=== PATIENT | male | born 1955 | race Caucasian/White ===

== ENCOUNTER 2017-10-06 08:53 | Day surgery (SDC) | payer BC ==
[2017-10-06] MEDS ORDERED: LACTATED RINGERS 1,000 ML IV ONE ×2 (09:23→09:37)
[2017-10-06] MEDS ORDERED: MIDAZOLAM 2 MG/2 ML VIAL IVP ONE (09:51)
[2017-10-06] MEDS ORDERED: fentaNYL 100 MCG/2 ML VIAL IVP ONE (09:51)
[2017-10-06 10:22] VITALS: BP 124/87
== END 2017-10-06 08:54 | disposition home or self-care (01) ==
LOC: SDS 08:53
PROVIDERS: ATTEND Surgery
PROC: 0DBK8ZX Excision of Ascending Colon, Via Natural or Artificial Opening Endoscopic, Diagnostic (ICD-10-PCS; principal; 2017-10-06 10:00)
DX: Z12.11 Encounter for screening for malignant neoplasm of colon (principal); D12.2 Benign neoplasm of ascending colon; K57.30 Diverticulosis of large intestine without perforation or abscess without bleeding; K64.8 Other hemorrhoids; I10 Essential (primary) hypertension; E66.9 Obesity, unspecified
CPT/HCPCS: 45385; 88305; J7120

== ENCOUNTER 2023-04-15 12:26 | Outpatient (CLI) | payer MEDICARE ==
--- NOTE | 2023-04-15 16:27 | XRAY Report ---
PROCEDURE: Hand 2 View BILAT INDICATIONS: ARTHRITIS OF HANDS, NOCTURIA TECHNIQUE: 2 views of the right and left hand(s) acquired. COMPARISON: None. FINDINGS: Bones: No fractures or dislocations. No suspicious bony lesions. No osseous erosions. No periarticu lar osteopenia. Moderate left first CMC joint osteoarthritis. Mild bilateral second through fifth DIP joint osteoarthritis. Mild left second PIP joint osteoarthritis. Soft tissues: No suspicious soft tissue calcifications or masses. IMPRESSION: No osseous erosions. Polyarticular osteoarthritis. Reviewed by: Sherita Maxwell MD, PhD on 04/15/2023 4:26 PM PDT Approved by: Sherita Maxwell MD, PhD on 04/15/2023 4:26 PM PDT Station ID: [id number]
--- NOTE | 2023-04-15 16:35 | Ultrasound Report ---
PROCEDURE: Bladder INDICATIONS: ARTHRITIS OF HANDS, NOCTURIA TECHNIQUE: Real-time scanning was performed of the kidneys and bladder, with image documentation. COMPARISON: None FINDINGS: Bladder: Pre-void bladder volume is 157 mL. Post-void residual is 40 mL. Pre-void images demonstra te no intraluminal masses or stones. On pre-void images, bilateral ureteral jets are noted with colo r Doppler interrogation. (Of note, ureteral jets may not be detectable in up to 25% of cases due to insufficient differences in specific gravity between ureteral and bladder urine). Prostate is promin ent measuring 4.6 x 4.3 x 4.8 cm Miscellaneous: No free pelvic fluid. IMPRESSION: Prominent prostate. Mild post void residual. Reviewed by: Bere Sher MD on 04/15/2023 4:34 PM PDT Approved by: Bere Sher MD on 04/15/2023 4:34 PM PDT Station ID: [id number]
== END 2023-04-15 12:27 | disposition home or self-care (01) ==
LOC: DI 12:26
PROVIDERS: ATTEND Internal Medicine
DX: R35.1 Nocturia (principal); M19.042 Primary osteoarthritis, left hand; M19.041 Primary osteoarthritis, right hand

== ENCOUNTER 2023-11-04 15:20 | Outpatient (CLI) | payer MEDICARE ==
--- NOTE | 2023-11-04 21:08 | XRAY Report ---
PROCEDURE: Shoulder 3 View LT INDICATIONS: PAIN IN LEFT SHOULDER JOINT TECHNIQUE: 3 views of the shoulder were acquired. COMPARISON: None. FINDINGS: Bones: No fractures or dislocations. No suspicious bony lesions. Visualized ribs appear intact. G lenohumeral joint degenerative arthritis. Soft tissues: No suspicious soft tissue calcifications. The visualized lungs are within normal limi ts. IMPRESSION: Glenohumeral joint degenerative arthritis. No acute bony abnormality. Reviewed by: Raphael Josue MD on 11/04/2023 9:07 PM PST Approved by: Raphael Josue MD on 11/04/2023 9:07 PM PST Station ID: [id number]
== END 2023-11-04 15:21 | disposition home or self-care (01) ==
LOC: DI.S 15:20
PROVIDERS: ATTEND Nurse Practitioner Family
DX: M19.012 Primary osteoarthritis, left shoulder (principal)

== ENCOUNTER 2024-01-09 07:56 | Outpatient (CLI) | payer MEDICARE ==
[2024-01-09 08:27] LABS: CREATININE 0.8 mg/dL (0.6-1.3)
[2024-01-09] MEDS ORDERED: GADOTERATE MEGLUMINE 10 MMOL/20 ML VIAL ONE (09:31)
[2024-01-09] MEDS: GADOTERATE MEGLUMINE 10 MMOL/20 ML VIAL IVP ONE (10:54)
--- NOTE | 2024-01-09 12:36 | MRI Report ---
PROCEDURE: Pelvis W/WO INDICATIONS: ELEVATED PSA CONTRAST: CLARISCAN 17.2 ML TECHNIQUE: Coronal ultra fast SE, axial T1 FSE with fat saturation, 3-plane nonbreath-hold T2 FSE. After the ad ministration of contrast, dynamic axial, delayed axial and coronal ultra fast GE or 2-D spoiled GE wi th fat saturation through the pelvis. Optional diffusion weighted imaging and ADC may be performed. COMPARISON: None. FINDINGS: Image quality: Diffusion weighted and dynamic contrast enhanced images are diagnostic. Prostate: Gland size is 4.2 x 3.8 x 3.7 cm; ellipsoid gland volume is 31 mL. Extensive adenocarcinoma in the anterior fibromuscular stroma and both the right and left anterior tr ansitional zones measuring in aggregate 3.3 x 1.5 x 2.6 cm. T2 score 5. DWI score 5. DCE positive. Pi RADS 5. The extent of capsular contact raises concern for capsular invasion. This also extends close to the bladder neck. The seminal vesicles are clear. Mildly T2 hypointense heterogenous striated appearance of the peripheral zone is commonly seen with c urrent or prior prostatitis, PI-RADS 2. Genitourinary system: Mildly trabeculated bladder, likely related to chronic obstruction. Bowel and peritoneum: No bowel obstruction or pathologic ascites Nodes and vessels: No suspicious nodes by size criteria are seen, however consider PSA may catheter correlate for small anette disease if clinically necessary. No aneurysmal vessel identified. Soft tissues: No inguinal hernias. Bones: Degenerative changes. No suspicious enhancing lesion. IMPRESSION: Prostate adenocarcinoma involving both the right and left anterior transitional zones, with extensive capsular contact along the anterior fibromuscular stroma, raising concern for capsular invasion. PI RADS 5. The seminal vesicles appear clear. Reviewed by: Nile Wheeler MD on 01/09/2024 12:35 PM PST Approved by: Nile Wheeler MD on 01/09/2024 12:35 PM PST Station ID: [id number]
== END 2024-01-09 07:57 | disposition home or self-care (01) ==
LOC: LAB 07:56
PROVIDERS: ATTEND Urology
DX: R97.20 Elevated prostate specific antigen [PSA] (principal); C61 Malignant neoplasm of prostate
CPT/HCPCS: 36415; 72197; 82565; A9575

== ENCOUNTER 2024-02-16 08:48 | Day surgery (SDC) | payer MEDICARE ==
[2024-02-16] MEDS: LACTATED RINGERS 1,000 ML IV ONE (09:21)
[2024-02-16] MEDS ORDERED: LIDOCAINE-MPF 1% 30 ML VIAL ONE (10:07)
--- NOTE | 2024-02-16 10:17 | ANESTHESIA ---
Pre-Anesthesia VS, & Labs - Diagnosis elevated PSA - Procedure TRUS prostate biopsy Vital Signs: Temp Pulse Resp BP Pulse Ox O2 Flow Rate 36.6 C 70 18 140/83 H 95 02/16/24 09:30 02/16/24 09:30 02/16/24 09:30 02/16/24 09:30 02/16/24 09:30 Height: 5 ft 8 in Weight (kg): 89.9 kg Body Mass Index: 30.1 BMI Classification: Obese - NPO >8 hours Home Medications and Allergies Home Medications: Ambulatory Orders Azelastine HCl 1 spray NS DAILY 02/06/24 Cholecalciferol [Vitamin D3] 50 mcg PO DAILY 02/06/24 Fluticasone [Flonase] 1 sprays DAMIR DAILY 02/06/24 Multivitamin 1 each PO DAILY 02/06/24 Omeprazole 10 mg PO DAILY 02/06/24 Azelastine HCl 1 spray NS DAILY 02/06/24 Cholecalciferol [Vitamin D3] 50 mcg PO DAILY 02/06/24 Fluticasone [Flonase] 1 sprays DAMIR DAILY 02/06/24 Multivitamin 1 each PO DAILY 02/06/24 Omeprazole 10 mg PO DAILY 02/06/24 Allergies/Adverse Reactions: Allergies Allergy/AdvReac Type Severity Reaction Status Date / Time No Known Drug Allergies Allergy Verified 02/16/24 09:43 Anes History & Medical History - Anesthetic History Anesthesia Complications: reports: No previous complications - Medical History Cardiovascular: reports: None Pulmonary: reports: None Gastrointestinal: reports: Colon polyps Urinary: reports: Benign prostate hypertrophy Musculoskeletal: reports: Osteoarthritis Endocrine/Autoimmune: reports: None Skin: reports: Eczema, Other Smoking Status: Former smoker Psychosocial: reports: Alcohol (3-5 day, wine), Cannabis (daily small amount) - Surgical History General: reports: Appendectomy, Colonoscopy Eyes Ears Nose Throat (EENT): reports: Tonsil/Adenoidectomy Exam General: Alert Dental: WNL Mouth Opening: Greater than 4 Fingerbreadths Neck Mobility: Normal Mallampati classification: II Thyromental Distance: greater than 6 cm Respiratory: Lungs clear Cardiovascular: Regular rate Plan Anesthesia Type: MAC, Total IV Consent for Procedure(s) Verified and Reviewed: Yes Code Status: Attempt Resuscitation ASA classification: 2-Mild systemic disease Is this case an emergency?: No
[2024-02-16] MEDS ORDERED: fentaNYL 100 MCG/2 ML VIAL ONE (10:50)
[2024-02-16] MEDS ORDERED: PROPOFOL 200 MG/20 ML VIAL IVP ONE (10:50)
[2024-02-16] MEDS ORDERED: MIDAZOLAM 2 MG/2 ML VIAL ONE (10:50)
[2024-02-16] MEDS: LIDOCAINE 1% 50 ML MDV SUBQ ONE (10:56)
--- NOTE | 2024-02-16 11:09 | Discharge Plan ---
Discharge Plan Problem Reviewed?: Yes Disposition: Home, Self Care Condition: Good Diet: Regular Activity Restrictions: No Restrictions Shower Restrictions: No Driving Restrictions: No Instruction Topics: Biopsy Ultrasound Transrectal Additional Instructions or Follow Up instructions: You have an appointment to see Dr. Cartwright on February 19 at 1 PM, please arrive 10 minutes early No Smoking: If you smoke, Please STOP! Call for help. Follow-up with: Jesus Tsyon MD [Primary Care Provider] -
--- NOTE | 2024-02-16 11:11 | OPERATIVE REPORT ---
Operative Report - General Procedure Date: 02/16/24 Planned Procedure: Transrectal ultrasound-guided prostate biopsy Pre-Op Diagnosis: Elevated PSA Procedure Performed: Transrectal ultrasound-guided prostate biopsy Post Op Diagnosis: Elevated PSA - Procedure Note Primary Surgeon: Chay Anesthesia Provider: TATYANA Garcia Anesthesia Technique: Moderate sedation Pathology: Routine prostate biopsy samples Indications: Elevated PSA PI-RADS 5 lesion throughout left and right anterior transition zone Findings: Multiple calcifications between peripheral zone and transition zone Complications: none - Other Other Information/Narrative: After informed consent was obtained the patient was brought to the OR and laid in the supine position. The patient was then anesthetized per anesthesia protocols and placed in the left lower cubitus position with left side down. A timeout was performed reconfirming the patient, procedure and laterality. A transrectal ultrasound-guided probe was placed per rectum and his prostate was visualized. 5 cc 1% lidocaine was placed at the lateral aspect of the prostate bilaterally. The prostate volume was measured at 48.2cc Using 18-gauge biopsy needle we obtained samples of the prostate from the right and left side, the lateral and medial aspects of the base, mid and apex for a total of 12 samples. These were sent for analysis separately.After informed sent was he had noted large anterior transition zone PI-RADS 5 lesion seen on MRI. For this reason throughout the medial samplings of both the left and right side care was made to target the transition zone as well The probe was slowly removed and no bleeding was identified. The patient tolerated procedure well and was brought to the PACU without further incident. He will follow-up in a few weeks time for pathology discussion
[2024-02-16 11:14] VITALS: O2SAT 96
[2024-02-16 11:25] VITALS: BP 127/66
--- NOTE | 2024-02-16 11:48 | ANESTHESIA POST OP EVALUATION ---
Anesthesia Post Eval - Post Anesthesia Eval Vitals: Last Vital Signs Temp 36.2 C L 02/16/24 11:21 Pulse 68 02/16/24 11:21 Resp 16 02/16/24 11:21 BP 127/66 02/16/24 11:21 Pulse Ox 96 02/16/24 11:21 O2 Flow Rate CV Function Including HR & BP: Stable Pain Control: Satisfactory Nausea & Vomiting: Negative Mental Status: Baseline Respiratory Status: Airway Patent Hydration Status: Satisfactory Anesthesia Complications: None
== END 2024-02-16 08:49 | disposition home or self-care (01) ==
LOC: SDS 08:48
PROVIDERS: ATTEND Urology
PROC: 0VJ43ZZ Inspection of Prostate and Seminal Vesicles, Percutaneous Approach (ICD-10-PCS; principal; 2024-02-16 10:05)
DX: C61 Malignant neoplasm of prostate (principal); Z87.891 Personal history of nicotine dependence
CPT/HCPCS: 55700; J7120

== ENCOUNTER 2024-07-14 12:12 | Outpatient (CLI) | payer MEDICARE | END 2024-07-14 12:13 | disposition home or self-care (01) | LOC: LAB 12:12 | PROVIDERS: ATTEND Nurse Practitioner Adult Health | DX: C61 Malignant neoplasm of prostate (principal) | CPT/HCPCS: 36415; 84153 ==